=== PATIENT | male | born 1970 | race Caucasian/White ===

== ENCOUNTER → 2019-05-02 | Emergency (ER) | payer OTHER ==
[~2019-05-02] VITALS: Ht 170.2 cm; Wt 98.9 kg
[~2019-05-02] MED LIST: HYDROCHLOROTH12.5 M1; HYDROCHLOROTHIA25 MG; LOSARTAN POTASS50 MG; OMEGA-3 ACID ETH1 GM; SIMVASTATIN20 MG
== END | disposition home or self-care (01) ==
LOC: ER 21:23
DX: I10 Essential (primary) hypertension (principal); R51 Headache